=== PATIENT | female | born 1985 | race Caucasian/White ===

== ENCOUNTER 2025-06-09 17:32 | Emergency (ER) | payer OTHER, SELFPAY ==
--- NOTE | ~2025-06-09 | XR_ITS ---
EXAMINATION: XR chest 2V DATE: 06/09/2025 18:09 INDICATION: Shortness of breath. TECHNIQUE: Frontal and lateral views of the chest were obtained. COMPARISON: None. FINDINGS: Heart size is normal. Lungs are clear of acute processes. IMPRESSION: 1. No acute findings. Reviewed, dictated and finalized at location [facility] IMPRESSION: 1. No acute findings.
[2025-06-09 17:36] VITALS: BP 125/75; PULSE 61; RESP 20; TEMP 36.6; O2SAT 99
--- NOTE | 2025-06-09 17:38 | ECG_ITS ---
Test Date: 2025-06-09 19:11:19 Measurements Intervals [place] Rate: 80 P: 20 IA: 124 QRS: 22 QRSD: 87 T: 12 QT: 429 QTc: 497 Interpretive Statements SINUS RHYTHM LOW QRS VOLTAGE IN PRECORDIAL LEADS [QRS DEFLECTION < 1.0 mV IN CHEST LEADS] OTHERWISE NORMAL ECG No previous ECG available for comparison Electronically Signed On 06-10-2025 08:05:42 DETAIL SERGEANT by Edison Geronimo M.D.
--- NOTE | 2025-06-09 17:39 | ED_ITS ---
HPI - URI/Sore Throat General Chief Complaint: Upper Respiratory Infection <Eloisa Snell APRN - Last Filed: 06/09/25 17:41> Stated Complaint: SOB, cough, congestion x 4 days <Eloisa Snell APRN - Last Filed: 06/09/25 17:41> Time Seen by Provider: 06/09/25 17:39 <Eloisa Snell APRN - Last Filed: 06/09/25 17:41> Focused HPI: Patient is a 39-year-old female who presents to the ER with a 4 day history of cough, wheezing, congestion, and is feels as though I have an elephant sitting on my chest. She denies any back pain, recent fevers, or abdominal pain. Patient reports she has a history of asthma. She reports she did not want to come into the ER but was getting no relief with euyn-emk-[id number] medications. GENERAL: Ill-appearing, well-nourished, and in no acute distress. HEAD: Normocephalic, atraumatic. CHEST: + Wheezing HEART: Regular rate and rhythm.? NEURO: ?Alert and oriented x3. Patient screened in triage and initial orders placed.? ?Additional care and disposition to be based upon?diagnostic testing and treatment. <Eloisa Snell APRN - Last Filed: 06/09/25 17:41> Related Data Allergies/Adverse Reactions: Allergies Allergy/AdvReac Type Severity Reaction Status Date / Time No Known Allergies Allergy Verified 06/09/25 17:38 <Eloisa Snell APRN - Last Filed: 06/09/25 17:41> Review of Systems 2 Review of Systems: All systems reviewed & are unremarkable except as noted in HPI and below <Brigitte Willis PA-C - Last Filed: 06/09/25 22:12> PMFSH Past Medical History Medical History: Medical History (Updated 06/09/25 @ 22:12 by Brigitte Willis PA-C) Asthma <Eloisa Snell APRN - Last Filed: 06/09/25 17:41> Exam 2 Narrative: GENERAL: Well-appearing, well-nourished, and in no acute distress. HEAD: Normocephalic, atraumatic. EYES: EOMI. ENT: Nares clear, no rhinorrhea or epistaxis. Mucous membranes moist. Oropharynx without tonsillar hypertrophy exudate or other lesions. CHEST: No respiratory distress. Lung sounds coarse with scattered wheezing. No rales or rhonchi HEART: Regular rate and rhythm. No murmur heard. Normal peripheral pulses. EXTREMITIES: Normal range of motion. No edema. SKIN: Warm, dry, no rash. NEURO: No focal deficits. Alert and oriented x3. PSYCH: Normal mood and affect <Brigitte Willis PA-C - Last Filed: 06/09/25 22:12> Course Course Emergency Course: Patient resting comfortably after nebulizer treatment, steroid, mag <Brigitte Willis PA-C - Last Filed: 06/09/25 22:12> Vital Signs Vital signs: Vital Signs Temperature 97.9 F 06/09/25 17:36 Pulse Rate 61 06/09/25 17:36 Respiratory Rate 20 06/09/25 17:36 Blood Pressure 125/75 06/09/25 17:36 Pulse Oximetry 99 06/09/25 17:36 Oxygen Delivery Room Air 06/09/25 17:36 Temperature 97.9 F 06/09/25 17:36 Pulse Rate 103 H 06/09/25 21:45 Respiratory Rate 20 06/09/25 21:45 Blood Pressure 98/54 L 06/09/25 21:45 Pulse Oximetry 94 06/09/25 21:45 Oxygen Delivery Room Air 06/09/25 17:36 <Eloisa Snell, GEODESIST - Last Filed: 06/09/25 17:41> Vital Signs Temperature 97.9 F 06/09/25 17:36 Pulse Rate 61 06/09/25 17:36 Respiratory Rate 20 06/09/25 17:36 Blood Pressure 125/75 06/09/25 17:36 Pulse Oximetry 99 06/09/25 17:36 Oxygen Delivery Room Air 06/09/25 17:36 Temperature 97.9 F 06/09/25 17:36 Pulse Rate 103 H 06/09/25 21:45 Respiratory Rate 20 06/09/25 21:45 Blood Pressure 98/54 L 06/09/25 21:45 Pulse Oximetry 94 06/09/25 21:45 Oxygen Delivery Room Air 06/09/25 17:36 <Brigitte Willis PA-C - Last Filed: 06/09/25 22:12> MDM - URI/Sore Throat MDM Narrative Medical decision making narrative: Patient presents the emergency department for cough, wheezing, shortness of breath. She is afebrile and nontoxic appearing. Oxygen saturation is normal on room air. CBC with mild leukocytosis to 10.4. Metabolic panel mild hypokalemia, this was replaced. EKG without concerning changes, baseline troponin is negative. D-dimer is not elevated. COVID, influenza and RSV screens are negative. Patient resting comfortably after nebulizer treatment, steroids, mag. Will be continued on oral steroids, given prescription for albuterol. She is to follow up with PCP <Brigitte Willis PA-C - Last Filed: 06/09/25 22:12> Differential Diagnosis Differential diagnosis: Likely upper respiratory infection, viral infection, bronchitis, influenza and other (asthma exacerbation, covid) <Birgitte Willis PA-C - Last Filed: 06/09/25 22:12> Lab Data Attestation: I reviewed the patient's lab results. <Brigitte Willis PA-C - Last Filed: 06/09/25 22:12> Result diagrams: 06/09/25 19:06 06/09/25 19:05 <lEoisa Snell APRN - Last Filed: 06/09/25 17:41> Labs: Lab Results 06/09/25 06/09/25 06/09/25 Range/Units 19:05 19:06 19:10 WBC 10.4 H (4.5-10.0) K/mm3 RBC 4.12 L (4.2-5.4) M/mm3 Hgb 12.5 (12.0-15.0) g/dL Hct 38.6 (37.0-47.0) % MCV 93.7 (80-100) fl MCH 30.3 (26-34) pg MCHC 32.4 (32-36) g/dl RDW 13.2 (11.5-14.5) % Plt Count 314 (150-375) k/mm3 MPV 9.3 (7.4-10.4) fl Immature Gran % (Auto) Not Reportable Neut % (Auto) Not Reportable Lymph % (Auto) Not Reportable [place] % (Auto) Not Reportable Eos % (Auto) Not Reportable Baso % (Auto) Not Reportable Lymph # (Auto) Not Reportable [place] # (Auto) Not Reportable Eos # (Auto) Not Reportable Baso # (Auto) Not Reportable Abs Immat Gran (auto) Not Reportable Absolute Neuts (auto) Not Reportable Absolute Nucleated RBC Not Reportable Total Counted 100 Neutrophils % (Manual) 44 L (46-73) % Band Neutrophils % 2 (0-6) % Lymphocytes % (Manual) 49.0 H (18-44) % Monocytes % (Manual) 3 (3-9) % Eosinophils % (Manual) 2 (0-4) % Nucleated RBC % Not Reportable Abs Neuts (Manual) 4.78 (1.3-6.7) K/mm3 Abs Lymphs (Manual) 5.09 H (1.1-4.5) K/mm3 Abs Monocytes (Manual) 0.31 (0.1-0.90) K/mm3 Absolute Eos (Manual) 0.20 (0.02-0.50) K/mm3 Platelet Estimate Adequate (Adequate) Schistocytes None seen D-Dimer < 0.27 (<0.48) ug/mL Sodium 138 (137-145) mmol/L Potassium 3.2 L (3.4-5.0) mmol/L Chloride 105 (98-107) mmol/L Carbon Dioxide 27 (22-30) mmol/L Anion Gap 6 (4-12) mmol/L BUN 5 L (7-17) mg/dL Creatinine 0.79 (0.7-1.0) mg/dL Estim Creat Clear Calc 89 ml/min Estimated GFR > 60 (59 - ) Glucose 105 (65-110) mg/dL Calcium 9.1 (8.4-10.2) mg/dL Magnesium 2.2 (1.6-2.3) mg/dL Total Bilirubin 0.2 (0.2-1.3) mg/dL AST 18 (14-36) U/L ALT 13 (6-35) U/L Alkaline Phosphatase 85 (38-126) U/L Troponin I < 0.012 (0.000-0.034) ng/mL Total Protein 7.1 (6.3-8.2) g/dL Albumin 4.2 (3.5-5.1) g/dL Urine Color Yellow (Yellow) Urine Appearance Clear (Clear) Urine pH 5.5 (5.0-9.0) Ur Specific [place] 1.009 (1.001-1.035) Urine Protein Negative (Negative) mg/dL Urine Glucose (UA) Negative (Negative) mg/dL Urine Ketones Negative (Negative) mg/dL Ur Blood (Man) Negative (Negative) Urine Nitrate Negative (Negative) Urine Bilirubin Negative (Negative) Urine Urobilinogen 0.2 (<2.0) mg/dL Leukocyte Esterase Rfl Negative (Negative) STANLEY/UL POC Urine HCG, Qual Negative (Negative) Urine Opiates Screen Negative (Negative) Urine Methadone Screen Negative (Negative) Ur Barbiturates Screen Negative (Negative) Ur Phencyclidine Scrn Negative (Negative) Ur Amphetamine Screen Negative (Negative) U Benzodiazepines Scrn Negative (Negative) Urine Cocaine Screen Negative (Negative) U Cannabinoids Screen Positive A (Negative) Influenza A (RT-PCR) Negative (Negative) Influenza B (RT-PCR) Negative (Negative) RSV (RT-PCR) Negative (Negative) SARS-CoV-2 RNA (RT-PCR) Negative (Negative) <Eloisa Snell, GEODESIST - Last Filed: 06/09/25 17:41> Lab Results 06/09/25 06/09/25 06/09/25 Range/Units 19:05 19:06 19:10 WBC 10.4 H (4.5-10.0) K/mm3 RBC 4.12 L (4.2-5.4) M/mm3 Hgb 12.5 (12.0-15.0) g/dL Hct 38.6 (37.0-47.0) % MCV 93.7 (80-100) fl MCH 30.3 (26-34) pg MCHC 32.4 (32-36) g/dl RDW 13.2 (11.5-14.5) % Plt Count 314 (150-375) k/mm3 MPV 9.3 (7.4-10.4) fl Immature Gran % (Auto) Not Reportable Neut % (Auto) Not Reportable Lymph % (Auto) Not Reportable [place] % (Auto) Not Reportable Eos % (Auto) Not Reportable Baso % (Auto) Not Reportable Lymph # (Auto) Not Reportable [place] # (Auto) Not Reportable Eos # (Auto) Not Reportable Baso # (Auto) Not Reportable Abs Immat Gran (auto) Not Reportable Absolute Neuts (auto) Not Reportable Absolute Nucleated RBC Not Reportable Total Counted 100 Neutrophils % (Manual) 44 L (46-73) % Band Neutrophils % 2 (0-6) % Lymphocytes % (Manual) 49.0 H (18-44) % Monocytes % (Manual) 3 (3-9) % Eosinophils % (Manual) 2 (0-4) % Nucleated RBC % Not Reportable Abs Neuts (Manual) 4.78 (1.3-6.7) K/mm3 Abs Lymphs (Manual) 5.09 H (1.1-4.5) K/mm3 Abs Monocytes (Manual) 0.31 (0.1-0.90) K/mm3 Absolute Eos (Manual) 0.20 (0.02-0.50) K/mm3 Platelet Estimate Adequate (Adequate) Schistocytes None seen D-Dimer < 0.27 (<0.48) ug/mL Sodium 138 (137-145) mmol/L Potassium 3.2 L (3.4-5.0) mmol/L Chloride 105 (98-107) mmol/L Carbon Dioxide 27 (22-30) mmol/L Anion Gap 6 (4-12) mmol/L BUN 5 L (7-17) mg/dL Creatinine 0.79 (0.7-1.0) mg/dL Estim Creat Clear Calc 89 ml/min Estimated GFR > 60 (59 - ) Glucose 105 (65-110) mg/dL Calcium 9.1 (8.4-10.2) mg/dL Magnesium 2.2 (1.6-2.3) mg/dL Total Bilirubin 0.2 (0.2-1.3) mg/dL AST 18 (14-36) U/L ALT 13 (6-35) U/L Alkaline Phosphatase 85 (38-126) U/L Troponin I < 0.012 (0.000-0.034) ng/mL Total Protein 7.1 (6.3-8.2) g/dL Albumin 4.2 (3.5-5.1) g/dL Urine Color Yellow (Yellow) Urine Appearance Clear (Clear) Urine pH 5.5 (5.0-9.0) Ur Specific [place] 1.009 (1.001-1.035) Urine Protein Negative (Negative) mg/dL Urine Glucose (UA) Negative (Negative) mg/dL Urine Ketones Negative (Negative) mg/dL Ur Blood (Man) Negative (Negative) Urine Nitrate Negative (Negative) Urine Bilirubin Negative (Negative) Urine Urobilinogen 0.2 (<2.0) mg/dL Leukocyte Esterase Rfl Negative (Negative) STANLEY/UL POC Urine HCG, Qual Negative (Negative) Urine Opiates Screen Negative (Negative) Urine Methadone Screen Negative (Negative) Ur Barbiturates Screen Negative (Negative) Ur Phencyclidine Scrn Negative (Negative) Ur Amphetamine Screen Negative (Negative) U Benzodiazepines Scrn Negative (Negative) Urine Cocaine Screen Negative (Negative) U Cannabinoids Screen Positive A (Negative) Influenza A (RT-PCR) Negative (Negative) Influenza B (RT-PCR) Negative (Negative) RSV (RT-PCR) Negative (Negative) SARS-CoV-2 RNA (RT-PCR) Negative (Negative) <Brigitte Willis PA-C - Last Filed: 06/09/25 22:12> Imaging Data Radiologist's impression: ITS Impressions Chest X-Ray 06/09/25 18:39 IMPRESSION: 1. No acute findings. <Brigitte Willis PA-C - Last Filed: 06/09/25 22:12> ECG Data EKG #1: ECG completion date: 06/09/25 <Brigitte Willis PA-C - Last Filed: 06/09/25 22:12> EKG Interpretation: normal rate, sinus rhythm, no ST changes and normal QT <Brigitte Willis PA-C - Last Filed: 06/09/25 22:12> Critical Care Time Critical Care Time Critical Care Time: No <Brigitte Willis PA-C - Last Filed: 06/09/25 22:12> Discharge Plan Discharge Clinical Impression: Acute hypokalemia Asthma exacerbation Qualifiers: Asthma severity: unspecified severity Asthma persistence: unspecified Qualified Code(s): J45.901 - Unspecified asthma with (acute) exacerbation Acute bronchitis Qualifiers: Bronchitis organism: unspecified organism Qualified Code(s): J20.9 - Acute bronchitis, unspecified <Eloisa Snell APRN - Last Filed: 06/09/25 17:41> Patient Disposition: Home <Eloisa Snell APRN - Last Filed: 06/09/25 17:41> Condition: Improved <Eloisa Snell APRN - Last Filed: 06/09/25 17:41> Instructions: Asthma (ED), Hypokalemia (ED), Acute Bronchitis (ED) <Eloisa Snell APRN - Last Filed: 06/09/25 17:41> Additional Instructions: Return to the emergency department for worsening symptoms, or any other concerns Remain well-hydrated, get plenty of rest. Take Tylenol or Motrin [id number] for pain as needed. Flonase for nasal congestion. Zyrtec for runny nose. Continue oral steroid. Albuterol 2 puffs every 4-6 hours as needed for shortness of breath or wheezing Follow up with primary care doctor <Eloias Snell APRN - Last Filed: 06/09/25 17:41> Patient Language: Albanian <Eloisa Snell APRN - Last Filed: 06/09/25 17:41> Prescriptions: New prednisone 20 mg tablet 40 mg PO DAILY 4 Days Qty: 8 0RF albuterol sulfate [Ventolin HFA] 90 mcg/actuation HFA aerosol inhaler 2 puff inhalation QID PRN (Reason: shortness of breath or wheezing) Qty: 8.5 0RF <Eloisa Snell APRN - Last Filed: 06/09/25 17:41> Follow-up/Referrals: PHYSICIAN,METALLURGICAL TECHNICIAN [Primary Care Provider, Internal Medicine] Kian Bonilla MD [Physician, Family Practice] <Eloisa Snell APRN - Last Filed: 06/09/25 17:41>
[2025-06-09] MEDS: IPRATROPIUM 0.5 MG/ALBUTEROL SULFATE 2.5 MG (BASE) AMPUL.NEB 3 ML INHALATION ×3 (18:27→19:07)
--- NOTE | 2025-06-09 18:28 | PCRCNOTE ---
tx was delayed due to code blue that came in
--- OUTSIDE RECORDS SUMMARY | 2025-06-09 18:57 | XMS_ITS ---
Author Organization Unknown ENCOUNTERS Encounter Performer Location Date Diagnosis Diagnosis Status Emergency [facility] [id number] [place] [address] [id number] Pre Admit [facility] [id number] [place] [address] [id number] *Note: Encounters from your own facility or health system may be excluded. Allergies, Adverse Reactions, Alerts Allergen Type Severity Identification Date Medications Name Date Quantity Days Supplied GPI Number
[2025-06-09 19:12] LABS: BEDSIDEPREGUCG Negative (Negative)
[2025-06-09 19:21] LABS: Hematocrit 38.6 % (37.0-47.0); Hemoglobin 12.5 g/dL (12.0-15.0); Mean Corpuscular HGB Conc 32.4 g/dl (32-36); Mean Corpuscular Hemoglobin 30.3 pg (26-34); Mean Corpuscular Volume 93.7 fl (80-100); Platelet Count Result 314 k/mm3 (150-375); Red Blood Count 4.12 M/mm3 (4.2-5.4); White Blood Count 10.4 K/mm3 (4.5-10.0)
[2025-06-09 19:30] LABS: Alanine Aminotransferase 13 U/L (6-35); Albumin Level 4.2 g/dL (3.5-5.1); Alkaline Phosphatase 85 U/L (38-126); Anion Gap 6 mmol/L (4-12); Aspartate Amino Transferase 18 U/L (14-36); Bilirubin,Total 0.2 mg/dL (0.2-1.3); Blood Urea Nitrogen 5 mg/dL (7-17); Calcium 9.1 mg/dL (8.4-10.2); Carbon Dioxide 27 mmol/L (22-30); Chloride 105 mmol/L (98-107); Estimated CRCL calculation 89 ml/min; Estimated Glomerular Filt Rate > 60; Glucose 105 mg/dL (65-110); Magnesium 2.2 mg/dL (1.6-2.3); Potassium 3.2 mmol/L (3.4-5.0); Sodium 138 mmol/L (137-145); Total Protein 7.1 g/dL (6.3-8.2)
[2025-06-09 19:39] LABS: Add Urine Microscopic? NO; Appearance Urine Clear (Clear); Glucose Urine UA Negative (Negative); Leukocyte Esterase Ur Negative LEU/UL (Negative); Nitrate Urine Negative (Negative); Specific Grav Ur 1.009 (1.001-1.035)
[2025-06-09 19:42] LABS: Troponin I < 0.012 ng/mL (0.000-0.034)
[2025-06-09 19:55] LABS: Band Neutrophils Percent 2 % (0-6); Eosinophils Absolute Manual 0.20 K/mm3 (0.02-0.50); Eosinophils Percent Manual 2 % (0-4); Lymphocytes Absolute Manual 5.09 K/mm3 (1.1-4.5); Lymphocytes Percent Manual 49.0 % (18-44); Monocytes Absolute Manual 0.31 K/mm3 (0.1-0.90); Monocytes Percent Manual 3 % (3-9); Neutrophils Absolute Manual 4.78 K/mm3 (1.3-6.7); Neutrophils Percent Manual 44 % (46-73); Total Cells Counted 100
[2025-06-09 19:56] LABS: Schistocytes None Seen
[2025-06-09 20:01] LABS: Cannabinoid Screen Urine Positive (Negative)
[2025-06-09] MEDS: MAGNESIUM SULF 2 GM/WATER 50ML 2 GM/50 ML BAG IVPB (20:05)
[2025-06-09] MEDS: POTASSIUM CHLORIDE 20 MEQ ER TABLET 40 MEQ PO (20:05)
[2025-06-09 20:13] LABS: Influenza A QL RT-PCR Negative (Negative); Influenza B QL RT-PCR Negative (Negative); RSV RNA, RT-PCR Negative (Negative); SARS-CoV-2 RNA PCR Negative (Negative)
[2025-06-09 21:45] VITALS: BP 98/54; PULSE 103; RESP 20; O2SAT 94
== END 2025-06-09 22:18 | disposition home or self-care (01) ==
PROVIDERS: Registered Nurse; Emergency Provider Physician Assistant
DX: J20.9 Acute bronchitis, unspecified (principal); J45.901 Unspecified asthma with (acute) exacerbation; E87.6 Hypokalemia; Z20.822 Contact with and (suspected) exposure to COVID-19
CPT/HCPCS: 36415; 71046; 80053; 80307; 81003; 81025; 83735; 84484; 85025; 85380; 87637; 93005; 94640; 96365; 96366; 96375; 99284; A9270; J2919; J3475